=== PATIENT | male | born 1945 | race Caucasian/White ===

== ENCOUNTER 2022-12-06 08:59 | Outpatient (CLI) | payer MEDICARE, SELFPAY ==
[2022-12-06 17:52] LABS: Thyroid Stimulating Hormone 0.082 uIU/mL (0.465-4.680)
[2022-12-06 17:53] LABS: Free T4 Free Thyroxine 2.59 ng/mL (0.78-2.19)
== END 2022-12-06 09:00 | disposition home or self-care (01) ==
LOC: ANHWCLAB 08:59
PROVIDERS: PCP Family Medicine; Visit Provider Internal Medicine Endocrinology, Diabetes & Metabolism
DX: E11.29 Type 2 diabetes mellitus with other diabetic kidney complication (principal); R80.9 Proteinuria, unspecified; E03.9 Hypothyroidism, unspecified; Z71.3 Dietary counseling and surveillance
CPT/HCPCS: 36415; 84439; 84443